=== PATIENT | female | born 1950 | race Caucasian/White ===

== ENCOUNTER → 2017-05-01 | Outpatient (CLI) | payer OTHER, BC ==
[~2017-05-01] MED LIST: Ativan PO; Bactrim,Septra DS 80 PO; COLCHICINE,COL0.6 MG PO; Duragesic TD; LIDODERM 5% P1 PATCH TD; LOPRESSOR25 MG PO; LOVENOX30 MG/0.3 SC; MICRO-K,K-TAB,10 MEQ PO; Oyst-Cal D, Oscal W/ PO; PERCOCET 10/1 TABLET PO; PRILOSEC40 MG PO; REGLAN10 MG PO; SENOKOT S,PE1 TABLET PO; THERAGRAN1 TABLET PO; Zoloft PO
== END | disposition home or self-care (01) ==
DX: M17.12 Unilateral primary osteoarthritis, left knee (principal); R26.2 Difficulty in walking, not elsewhere classified; M25.562 Pain in left knee; M25.662 Stiffness of left knee, not elsewhere classified; M62.81 Muscle weakness (generalized); Z74.1 Need for assistance with personal care
CPT/HCPCS: 97110 GP; 97150 GO; 97161 GP; 97165 GO; G8978 GP; G8979 GP; G8980 GP; G8987 GO; G8988 GO; G8989 GO

== ENCOUNTER 2017-05-27 22:10 | Inpatient (IN) | payer OTHER, BC ==
[~2017-05-27] VITALS: Ht 160 cm; Wt 84.6 kg
[~2017-05-27 22:10] MED LIST changes: +AMITIZA8 MICROGRA PO; +ASPIRIN81 M2 PO; +CALCIUM + D3 E1 EACH PO; +DURAGESIC100 MCG TD; +PLAQUENIL200 MG PO; +PRILOSEC20 MG PO; -PRILOSEC40 MG PO; +RAYOS5 MG PO; +ZOLOFT100 MG PO
[2017-05-28 10:50] VITALS: BP 178/85
[2017-05-28 17:05] VITALS: BP 151/67
[2017-05-28 17:08] VITALS: BP 151/67
[2017-05-28 19:25] VITALS: BP 136/70
[2017-05-28 23:14] VITALS: BP 138/63
[2017-05-29 03:51] VITALS: BP 89/53
[2017-05-29 05:17] LABS: HEMATOCRIT 30.9 % (36.0-46.0); MCV 87.3 FL (83-99)
[2017-05-29 05:41] LABS: ANION GAP 5 MEQ/L (2-14); CHLORIDE 106 MEQ/L (99-109); GFR ESTIMATE (CALCULATED) > 59 mL/min/; GLUCOSE 88 mg/dL (70-99); POTASSIUM 3.4 MEQ/L (3.7-5.4); SAMPLE HEMOLYSIS CHECK 0; SAMPLE ICTERIC CHECK 0; SAMPLE LIPEMIA CHECK 0; SODIUM 143 MEQ/L (136-147); UREA NITROGEN (BUN) 14 mg/dL (9-23)
[2017-05-29 07:45] VITALS: BP 108/55
[2017-05-29 12:09] VITALS: BP 123/58
[2017-05-29 15:31] VITALS: BP 116/60
[2017-05-29 19:34] VITALS: BP 140/63
[2017-05-29 23:00] VITALS: BP 133/62
[2017-05-30 05:18] VITALS: BP 141/67
[2017-05-30 06:14] LABS: HEMATOCRIT 28.7 % (36.0-46.0)
[2017-05-30 08:15] VITALS: BP 117/56
[2017-05-30 11:30] VITALS: BP 125/56
[2017-05-30 16:03] VITALS: BP 119/56
[2017-05-30 23:05] VITALS: BP 121/58
[2017-05-31 08:24] VITALS: BP 116/55
[2017-05-31] MEDS ORDERED: ELIQUIS2.5 MG PO (09:21)
[2017-05-31] MEDS ORDERED: OXYCODONE-APAP1 EACH PO (09:21)
== END 2017-05-31 13:24 | DRG 470 ==
LOC: ENRESERV 22:10 → 2SOUTH 05-28 08:59 → ENRESERV 05-28 15:48 → 2SOUTH 05-28 15:53 → 3EAST 05-28 16:55
PROVIDERS: Orthopaedic Surgery
PROC: 0SRD0J9 Replacement of Left Knee Joint with Synthetic Substitute, Cemented, Open Approach (ICD-10-PCS; principal; 2017-05-28)
DX: M17.12 Unilateral primary osteoarthritis, left knee (principal); D62 Acute posthemorrhagic anemia; K21.9 Gastro-esophageal reflux disease without esophagitis; M10.9 Gout, unspecified; I10 Essential (primary) hypertension; Z96.651 Presence of right artificial knee joint; Z56.0 Unemployment, unspecified; G89.4 Chronic pain syndrome; M06.9 Rheumatoid arthritis, unspecified
CPT/HCPCS: 71010; 80048; 85014; 85018; 85651; 86140; 97530 GO; C1713; J0131; J1100; J1720; J1885; J2250; J2405; J3010; J3370; J7050; J7120; J7512; Q0175